=== PATIENT | female | born 1995 | race Hispanic/Latino ===

== ENCOUNTER 2017-10-25 16:35 | Emergency (ER) | payer OTHER ==
[~2017-10-25 16:35] MED LIST: Iopamidol 370 76% 100 ML VIAL ONE
[2017-10-25] MEDS ORDERED: Ondansetron HCl/PF 4 MG/2 ML Vial ONE (17:43)
[2017-10-25 18:09] LABS: ALT (SGPT) 19 U/L (8-55); AST (SGOT) 15 U/L (5-34); Albumin 4.6 g/dL (3.5-5.0); Alkaline Phosphatase 118 U/L (40-150); Anion Gap 17 mmol/L (10-20); BUN (Urea Nitrogen) 11 mg/dL (7.0-18.7); Bilirubin, Total 2.8 mg/dL (0.2-1.2); Calc. Creatinine Clearance 0 mL/min (70-130); Carbon Dioxide 21 mmol/L (22-29); Chloride 102 mmol/L (98-107); Estimated GFR-MDRD 85; Globulin 3.7 g/dL (2.4-3.5); Glucose 107 mg/dL (70-105); Lipase 6 U/L (8-78); Potassium 3.9 mmol/L (3.5-5.1); Protein, Total 8.3 g/dL (6.0-8.3); Sodium 136 mmol/L (136-145)
[2017-10-25 18:10] LABS: BHCG - Serum Negative (NEGATIVE); Pregs Control Background? CLEAR/WHITE (CLR/WHITE); Pregs Control Bar Appear? YES (CONTROL BAR)
[2017-10-25 18:13] LABS: Band 5 % (5-11); Hemoglobin 14.1 g/dL (12.0-16.0); Lymphocytes 7 % (21-51); MDiff Complete? YES; Mean Corpuscular HGB CONC 34.1 g/dL (32.0-36.0); Mean Corpuscular Hemoglobin 30.4 pg (27.0-31.0); Mean Corpuscular Volume 89.3 fl (81.0-99.0); Mean Platelet Volume 8.5 fL (7.4-10.4); Monocytes 4 % (0-10); Neutrophil 84 % (42-75); PLT Morphology Comment Appears Adequate; Platelet Count 272 thou/uL (130-400); RBC Distribution Width 11.3 % (11.5-14.5); RBC Morphology Normal; Red Blood Cell (RBC) Count 4.63 mill/uL (4.20-5.40); White Blood Cell (WBC) Count 13.7 thou/uL (4.8-10.8)
[2017-10-25] MEDS ORDERED: cefTRIAXone\\ROCEPHIN 1 GM VIAL ONE (18:21)
[2017-10-25] MEDS ORDERED: Acetaminophen 500 MG TAB ONE (18:21)
[2017-10-25 19:19] LABS: Bilirubin Negative (Negative); Blood, Urine Trace (Negative); Clarity Hazy (Clear); Glucose, Urine (Dipstick) Negative (Negative); Leukocyte Small (Negative); Nitrite Negative (Negative); Protein, Urine (Dipstick) 100 mg/dL (Neg-Trace); Specific Gravity, Urine 1.015 (1.005-1.030); pH, Urine 8.5 (5.0-9.0)
[2017-10-25 19:43] LABS: Bacteria/HPF 2+ HPF (None Seen)
--- NOTE | 2017-10-25 20:10 | CT ---
CT ABDOMEN AND PELVIS WITH IV CONTRAST 10/25/17 HISTORY: Lower abdominal pain with radiation to the right flank with associated nausea and vomiting. COMPARISON: None available. FINDINGS: There is dependent bibasilar atelectasis. The osseous structures appear intact. There is heterogeneity involving the inferior pole right kidney with perinephric standing present on the right. There is also mid enhancement and thickening of the urothelium of the right ureter. Findin gs are worrisome for pyelonephritis on the right The left kidney has a normal CT appearance. There is no hydronephrosis seen bilaterally. A 2.9 cm low density structure seen in the right adnexal region which probably represents the patient 's right ovary with associated right ovarian cyst. The liver, spleen, pancreas, bilateral adrenal glands, and abdominal aorta demonstrate a normal CT ap pearance. The urinary bladder is incompletely distended. Zuluaga of the urinary bladder do appear mildly thickene d, but this is probably related to incomplete distention although cystitis could also result in urina ry bladder wall thickening. Fluid is seen in the endometrial canal probably related to stage of the patient's menstrual cycle. Le ft adnexal structures have a normal CT appearance. There is no free fluid, fluid collection, or lymphadenopathy seen in the abdomen or pelvis. The appendix is visualized and filled with gas and normal in caliber. IMPRESSION: 1. Right sided pyelonephritis. Correlation with urinalysis is recommended. Follow up exam also s uggested. 2. No CT evidence of appendicitis. 3. Above findings discussed with Dr. Jose on 10/25/17 at 1844 hours. POS: [facility]
== END 2017-10-25 19:43 | disposition home or self-care (01) ==
LOC: SCSER 16:35
DX: N12 Tubulo-interstitial nephritis, not specified as acute or chronic (principal)
CPT/HCPCS: 74177; 80053; 81003; 81015; 83605; 83690; 84703; 85025; 87040; 87077; 87086; 87149; 87186; 96361; 96374; 96375; J0696; J2405

== ENCOUNTER 2017-10-26 17:44 | Inpatient (IN) | payer OTHER, SELFPAY ==
[2017-10-26] MEDS ORDERED: Acetaminophen 500 MG TAB ONE (18:00)
[2017-10-26 18:19] LABS: Hemoglobin 13.4 g/dL (12.0-16.0); Mean Corpuscular HGB CONC 34.7 g/dL (32.0-36.0); Mean Corpuscular Hemoglobin 31.2 pg (27.0-31.0); Mean Corpuscular Volume 89.9 fl (81.0-99.0); Mean Platelet Volume 7.3 fL (7.4-10.4); Platelet Count 235 thou/uL (130-400); RBC Distribution Width 11.2 % (11.5-14.5); Red Blood Cell (RBC) Count 4.28 mill/uL (4.20-5.40); White Blood Cell (WBC) Count 13.6 thou/uL (4.8-10.8)
[2017-10-26 18:36] LABS: Band 20 % (5-11); Lymphocytes 20 % (21-51); MDiff Complete? YES; Monocytes 5 % (0-10); Neutrophil 54 % (42-75); PLT Morphology Comment Appears Adequate; RBC Morphology Normal; Reactive Lymphocytes 1 % (0-10)
[2017-10-26 18:46] LABS: ALT (SGPT) 15 U/L (8-55); AST (SGOT) 12 U/L (5-34); Albumin 4.3 g/dL (3.5-5.0); Alkaline Phosphatase 116 U/L (40-150); Anion Gap 16 mmol/L (10-20); BUN (Urea Nitrogen) 13 mg/dL (7.0-18.7); Bilirubin, Total 1.8 mg/dL (0.2-1.2); Calc. Creatinine Clearance 0 mL/min (70-130); Calcium 9.7 mg/dL (7.8-10.44); Carbon Dioxide 21 mmol/L (22-29); Chloride 101 mmol/L (98-107); Estimated GFR-MDRD 83; Globulin 3.8 g/dL (2.4-3.5); Glucose 97 mg/dL (70-105); Potassium 3.9 mmol/L (3.5-5.1); Protein, Total 8.1 g/dL (6.0-8.3); Sodium 134 mmol/L (136-145)
[2017-10-26 18:55] LABS: BHCG - Serum Negative (NEGATIVE); Pregs Control Background? CLEAR/WHITE (CLR/WHITE); Pregs Control Bar Appear? YES (CONTROL BAR)
[2017-10-26] MEDS ORDERED: Morphine 4 MG/ML VIAL ONE (18:59)
[2017-10-26] MEDS ORDERED: Ondansetron HCl/PF 4 MG/2 ML Vial ONE (19:00)
[2017-10-26 19:23] LABS: Bilirubin Small (Negative); Blood, Urine Negative (Negative); Clarity CLOUDY (Clear); Glucose, Urine (Dipstick) Negative (Negative); Leukocyte Small (Negative); Nitrite Negative (Negative); Protein, Urine (Dipstick) 30 mg/dL (Neg-Trace); Specific Gravity, Urine 1.024 (1.002-1.036); pH, Urine 6.5 (5.0-9.0)
[2017-10-26 19:25] LABS: Bacteria/HPF None Seen HPF (None Seen); Hyaline Casts/LPF 7-10 HYALINE CAST LPF (0-3 Hyaline); Pathc Cast-AUWi Flag 0.58 (0-2.49); WBC/HPF 21-50 HPF (0-3)
[2017-10-26 19:34] LABS: RBC/HPF 0-3 HPF (0-3)
[2017-10-26] MEDS ORDERED: Ondansetron ODT 4 MG TAB SL PRN (20:39)
[2017-10-26] MEDS ORDERED: Acetaminophen 325 MG TAB PO PRN (20:39)
[2017-10-26] MEDS ORDERED: HYDROcodone/Acetaminophen 5/325 mg Tablet PO PRN (20:39)
[2017-10-26] MEDS ORDERED: Ondansetron HCl/PF 4 MG/2 ML Vial IVP PRN (20:39)
[2017-10-26] MEDS: HYDROcodone/Acetaminophen 5/325 mg Tablet PO PRN (21:53)
[2017-10-26 21:57] VITALS: BMI 37.0
[2017-10-27] MEDS: Sodium Chloride 0.9% 1,000 ML IV SCH ×3 (01:46→21:29)
[2017-10-27] MEDS ORDERED: Bisacodyl 10 MG SUPP PR PRN (02:27)
--- NOTE | 2017-10-27 04:50 | HP ---
PRIMARY CARE PHYSICIAN: No PCP. CHIEF COMPLAINT: Right flank pain, fevers, and chills. HISTORY OF PRESENT ILLNESS: Patient is a very pleasant 22-year-old female who presented to the ER on the with complaints of lower abdominal pain and right flank pain, nausea and vomiting. The pat ietierney stated that she received Cipro and was just sent to home. The patient took one dose of Cipro; h owever, continued to have significant nausea, vomiting, and lower abdominal pain, which made her come back to the ER. Patient states that she did have some low grade fever at home, lower abdominal pain , dysuria, nausea, and vomiting. The patient stated that her pain is very sharp in nature and also s he has got some right-sided flank pain. PAST MEDICAL HISTORY: Denies any significant past medical history. PAST SURGICAL HISTORY: She stated that she had a Staph infection of her left extremity and required surgical intervention. PSYCHIATRIC HISTORY: No history of psych. SOCIAL HISTORY: She drinks socially. Denies any drug use or denies any smoking. ALLERGIES: No known drug allergies. MEDICATIONS: She takes none. PHYSICAL EXAMINATION: VITAL SIGNS: In the ED were as the following: Blood pressure 107/61, heart rate of 89, 18, 99%, 99. 5 and 100% on room air. GENERAL: She is awake, alert, oriented x3, does not appear in any distress. CARDIOVASCULAR: S1, S2 present. No murmurs, rubs, or gallops. LUNGS: Clear to auscultation. No rhonchi, wheezes noted. ABDOMEN: Soft, mild tenderness upon palpation to right and left lower quadrant. The patient also ann s CVA tenderness of the right side. EXTREMITIES: No edema. Pedal pulses present x2. REVIEW OF SYSTEMS: Except for the ones mentioned in the H and P. The following complete review of s ystems was negative, unless otherwise mentioned in the HPI or below: Constitutional: Weight loss or gain, ability to conduct usual activities. Skin: Rash, itching. Eyes: Double vision, pain. ENT/Mouth: Nose bleeding, neck stiffness, pain, tenderness. Cardiovascular: Palpitations, dyspnea on exertion, orthopnea. Respiratory: Shortness of breath, wheezing, cough, hemoptysis, fever or night sweats. Gastrointestinal: Poor appetite, abdominal pain, heartburn, nausea, vomiting, constipation, or diarr hea. Genitourinary: Urgency, frequency, dysuria, nocturia. Musculoskeletal: Pain, swelling. Neurologic/Psychiatric: Anxiety, depression. Allergy/Immunologic: Skin rash, bleeding tendency. LABORATORY DATA: Are as the following: White count of 13.6, hemoglobin of 13.4, 38.5 hematocrit, pl atelets of 235, bands of 20. Chemistry: Sodium of 134, potassium of 3.9, bicarbonate of 21, creatin ine of 0.86. She is negative for . She also had an abdomen and pelvis CAT scan, which juan cated inferior pole of the right kidney with perinephric stranding on the right. No hydronephrosis n oted. A 2.9 cm low density structure seen in the right adnexal area, most likely associated with rig ht ovarian cyst. The urinary bladder is incompletely distended. Zuluaga of the urinary bladder do nick ear mildly thickened, but this is probably related to incomplete distention, although cystitis could also result in urinary bladder wall thickening. ASSESSMENT AND PLAN: The patient is a very pleasant 22-year-old female who was admitted to the [facility] for possible pyelonephritis. Patient failed outpatient while technically should not even try out patient therapy. 1. Pyelonephritis. The patient will be started on ceftriaxone q.24 h., start IV hydration. Also, u rine sample has been collected. We will watch for cultures. 2. Nausea, vomiting. We will give patient some Zofran for p.r.n. nausea, vomiting. 3. Elevated leukocytosis with bands, most likely secondary to pyelonephritis. We will continue IV a ntibiotics and continue to monitor the patient.
[2017-10-27] MEDS: HYDROcodone/Acetaminophen 5/325 mg Tablet PO PRN (05:46)
[2017-10-27 06:20] LABS: ALT (SGPT) 13 U/L (8-55); AST (SGOT) 11 U/L (5-34); Albumin 3.6 g/dL (3.5-5.0); Alkaline Phosphatase 94 U/L (40-150); Anion Gap 11 mmol/L (10-20); BUN (Urea Nitrogen) 10 mg/dL (7.0-18.7); Bilirubin, Total 1.1 mg/dL (0.2-1.2); Calc. Creatinine Clearance 204 mL/min (70-130); Calcium 8.4 mg/dL (7.8-10.44); Carbon Dioxide 21 mmol/L (22-29); Chloride 107 mmol/L (98-107); Estimated GFR-MDRD Greater than 90; Globulin 3.1 g/dL (2.4-3.5); Glucose 86 mg/dL (70-105); Protein, Total 6.7 g/dL (6.0-8.3); Sodium 135 mmol/L (136-145)
[2017-10-27 06:21] LABS: Band 8 % (5-11); Hemoglobin 12.2 g/dL (12.0-16.0); Lymphocytes 9 % (21-51); MDiff Complete? YES; Mean Corpuscular HGB CONC 34.3 g/dL (32.0-36.0); Mean Corpuscular Hemoglobin 31.4 pg (27.0-31.0); Mean Corpuscular Volume 91.5 fl (81.0-99.0); Mean Platelet Volume 7.5 fL (7.4-10.4); Monocytes 13 % (0-10); Neutrophil 70 % (42-75); PLT Morphology Comment Appears Adequate; Platelet Count 200 thou/uL (130-400); RBC Distribution Width 11.2 % (11.5-14.5); RBC Morphology Normal; White Blood Cell (WBC) Count 9.9 thou/uL (4.8-10.8)
[2017-10-27] MEDS: Heparin 5,000 UNITS/ML VIAL SC SCH ×3 (08:55→21:30)
--- NOTE | 2017-10-27 09:38 | PDOC.PN ---
- Subjective Encounter Start Date: 10/27/17 Encounter Start Time: 09:36 Ms. Herrera was seen today in follow-up. She notes some continued right flank pain , and some abdominal pain. - Objective Resuscitation Status: Resuscitation Status FULL:Full Resuscitation MAR Reviewed: Yes Vital Signs & Weight: Vital Signs (12 hours) Temp Pulse Resp BP Pulse Ox 10/27/17 08:52 99.2 F 88 17 120/71 98 10/27/17 04:38 100.6 F H 87 20 116/74 99 10/27/17 00:20 97 10/27/17 00:00 98.5 F 87 20 95/53 L 97 Weight Weight 216 lb 1.6 oz I&O: 10/26/17 10/27/17 10/28/17 06:59 06:59 06:59 Intake Total 634 Output Total 800 Balance -166 Result Diagrams: 10/27/17 05:42 10/27/17 05:42 Phys Exam - Physical Examination HEENT: PERRLA Respiratory: no wheezing, no rales, no rhonchi, clear to auscultation bilateral + right CVA tenderness Cardiovascular: RRR, no significant murmur, no rub Gastrointestinal: soft, positive bowel sounds + diffuse tenderness no rebound or guarding Musculoskeletal: no edema, pulses present Dx/Plan (1) Pyelonephritis Code(s): N12 - TUBULO-INTERSTITIAL NEPHRITIS, NOT SPCF ACUTE OR CHRONIC Status: Acute - Plan * Pyelonephritis- continue Rocephin and await cultures * If she continues to have fever before culture results are available then will add Levaquin.
[2017-10-27] MEDS ORDERED: Ondansetron ODT 4 MG TAB PO PRN (13:43)
[2017-10-27] MEDS ORDERED: Ondansetron HCl/PF 4 MG/2 ML Vial IVP PRN (13:44)
[2017-10-27] MEDS ORDERED: Acetaminophen 325 MG TAB PO PRN (16:34)
[2017-10-27] MEDS: cefTRIAXone\\ROCEPHIN 1 GM in Syringe 10 ML SLOW IVP SCH (18:37)
[2017-10-28] MEDS: HYDROcodone/Acetaminophen 5/325 mg Tablet PO PRN ×2 (04:19→20:40)
[2017-10-28 05:27] LABS: Anion Gap 12 mmol/L (10-20); BUN (Urea Nitrogen) 8 mg/dL (7.0-18.7); Calc. Creatinine Clearance 223 mL/min (70-130); Calcium 8.7 mg/dL (7.8-10.44); Carbon Dioxide 21 mmol/L (22-29); Chloride 105 mmol/L (98-107); Estimated GFR-MDRD Greater than 90; Glucose 89 mg/dL (70-105); Potassium 3.6 mmol/L (3.5-5.1); Sodium 134 mmol/L (136-145)
[2017-10-28 06:00] LABS: Band 3 % (5-11); Hemoglobin 11.3 g/dL (12.0-16.0); Hypochromia SLIGHT = 6-15 cells (100X) (0-5/hpf); Lymphocytes 41 % (21-51); MDiff Complete? YES; Mean Corpuscular HGB CONC 34.6 g/dL (32.0-36.0); Mean Corpuscular Hemoglobin 31.1 pg (27.0-31.0); Mean Platelet Volume 7.4 fL (7.4-10.4); Monocytes 7 % (0-10); Neutrophil 48 % (42-75); PLT Morphology Comment Appears Adequate; Platelet Count 215 thou/uL (130-400); Reactive Lymphocytes 1 % (0-10); Red Blood Cell (RBC) Count 3.64 mill/uL (4.20-5.40); White Blood Cell (WBC) Count 8.6 thou/uL (4.8-10.8)
[2017-10-28] MEDS: Sodium Chloride 0.9% 1,000 ML IV SCH ×2 (08:16→18:37)
[2017-10-28] MEDS ORDERED: Ibuprofen 200 MG TAB PO PRN (12:49)
[2017-10-28] MEDS ORDERED: Senokot 8.6 MG TAB PO PRN (12:52)
[2017-10-28] MEDS ORDERED: Polyethylene Glycol 3350 17 GM Packet PO PRN (12:52)
--- NOTE | 2017-10-28 13:27 | PQF ---
CLINICAL DOCUMENTATION IMPROVEMENT CLARIFICATION FORM: ICD-10 Updated PLEASE DO AN ADDENDUM TO THE PROGRESS NOTE WITH ANY DOCUMENTATION UPDATES OR ADDITIONS AND CARRY THROUGH TO DC SUMMARY. THANK YOU. DATE: 10/28/17 ATTN: DR. HARMON Please exercise your independent, professional judgment in responding to the clarification form. Clinical indicators are provided on the bottom of this form for your review Please check appropriate box(es): [ ] Sepsis due to: (Pna, UTI, gangrenous gall bladder, etc.) Due to: [ ] Device (please specify) [ ] Implant [ ] Graft [ ] Infusion [ ] SIRS due to non-infectious process (please specify etiology) [ ] with organ dysfunction [ ] without organ dysfunction [ ] Severe sepsis with acute organ dysfunction of: (Examples: respiratory failure, encephalopathy, acute kidney failure, other) [ ] Septic Shock [ ] Localized infection without sepsis [ ] Other diagnosis [ ] Unable to determine In addition, please specify: Present on Admission (POA): [ ] Yes [ ] No [ ] Unable to determine For continuity of documentation, please document condition throughout progress notes and discharge summary. Thank You. CLINICAL INDICATORS - SIGNS / SYMPTOMS / LABS PULSE 111 TEMP 103.1 WBC 13.6 BANDS 20% RISKS: PYELONEPHRITIS TREATMENT: IV ROCEPHIN (ER-PRESENT) IV FLUIDS (ER-PRESENT) URINE AND BLOOD CULTURES CARDIAC MONITORING (This form is maintained as a part of the permanent medical record) 2014 [employer]. All Rights Reserved [email or web address] Office: [phone] [facility]
[2017-10-28] MEDS: cefTRIAXone\\ROCEPHIN 1 GM in Syringe 10 ML SLOW IVP SCH (18:36)
--- NOTE | 2017-10-28 20:27 | PDOC.PN ---
- Subjective Encounter Start Date: 10/28/17 Encounter Start Time: 09:30 Patient seen and examined. No new complaints. No overnight events. Some flank pain - Objective Resuscitation Status: Resuscitation Status FULL:Full Resuscitation MAR Reviewed: Yes Vital Signs & Weight: Vital Signs (12 hours) Temp Pulse Resp BP BP BP BP 10/28/17 16:00 99.1 F 88 20 118/68 10/28/17 11:45 99.4 F 83 16 117/66 10/28/17 09:55 98.4 F 78 20 130/63 10/28/17 08:36 116/71 109/70 110/68 Pulse Ox 10/28/17 16:00 10/28/17 11:45 10/28/17 09:55 98 10/28/17 08:36 Weight Admit Weight 216 lb 1.6 oz Weight 215 lb 9.6 oz I&O: 10/27/17 10/28/17 10/29/17 06:59 06:59 06:59 Intake Total 634 2827 Output Total 800 500 Balance -166 2327 Result Diagrams: 10/28/17 04:41 10/28/17 04:41 Phys Exam - Physical Examination Constitutional: NAD Respiratory: no wheezing, no rhonchi Cardiovascular: RRR, no rub Gastrointestinal: soft, non-tender, positive bowel sounds flank tend Musculoskeletal: no edema Neurological: moves all 4 limbs Dx/Plan - Plan DVT proph w/SCDs IMPRESSION: 1. Sepsis due to E coli UTI with E coli bacteremia/Pyelonephritis 2. Obesity BMI 37 3. Abn LFTS due to sepsis - resolved 4. Hyponatremia PLAN: * Cont Ceftriaxone * Cont to monitor * Transfer to medical * DC planning in 24 hr if afebrile * Ambulate Review of Systems - Review of Systems Respiratory: negative: Cough, Dry, Shortness of Breath, Hemoptysis, SOB with Excertion, Pleuritic Pain, Sputum, Wheezing Cardiovascular: negative: chest pain, palpitations, orthopnea, paroxysmal nocturnal dyspnea, edema, light headedness - Medications/Allergies Allergies/Adverse Reactions: Allergies Allergy/AdvReac Type Severity Reaction Status Date / Time No Known Drug Allergies Allergy Verified 10/26/17 21:49 Medications: Current Medications Acetaminophen (Tylenol) 650 mg PO Q4H PRN PRN Reason: Headache/Fever or Mild Pain Last Admin: 10/27/17 17:16 Dose: 650 mg Hydrocodone Bitart/Acetaminophen ([place] 5/325) 1 tab PO Q4H PRN PRN Reason: Moderate Pain (4-6) Last Admin: 10/28/17 04:19 Dose: 1 tab Bisacodyl (Dulcolax) 10 mg KS Q24H PRN PRN Reason: Constipation Docusate Sodium (Colace) 100 mg PO BID PENDING SALE TO [facility] Sodium Chloride (Normal Saline 0.9%) 1,000 mls @ 100 mls/hr IV .Q10H PENDING SALE TO [facility] Last Admin: 10/28/17 18:37 Dose: 1,000 mls Ceftriaxone Sodium 1 gm/ (Syringe) 10 mls @ 120 mls/hr SLOW IVP Q24HR@1800 PENDING SALE TO [facility] Last Admin: 10/28/17 18:36 Dose: 10 mls Ibuprofen (Motrin) 400 mg PO Q6H PRN PRN Reason: Mild Pain (1-3) Ondansetron HCl (Zofran Odt) 4 mg PO Q6H PRN PRN Reason: Nausea/Vomiting Last Admin: 10/27/17 14:21 Dose: 4 mg Ondansetron HCl (Zofran) 4 mg IVP Q6H PRN PRN Reason: Nausea/Vomiting Polyethylene Glycol (Miralax) 17 gm PO DAILY PRN PRN Reason: Constipation Saccharomyces Boulardii (Florastor) 250 mg PO DAILY TERRENCE Senna (Senokot) 2 tab PO HSPRN PRN PRN Reason: Constipation Sodium Chloride (Flush - Normal Saline) 10 ml IVF Q12HR PENDING SALE TO [facility] Last Admin: 10/28/17 08:18 Dose: Not Given Sodium Chloride (Flush - Normal Saline) 10 ml IVF PRN PRN PRN Reason: Saline Flush
[2017-10-28] MEDS: Docusate 100 MG CAP PO SCH (20:41)
[2017-10-29] MEDS: Sodium Chloride 0.9% 1,000 ML IV SCH (03:21)
[2017-10-29] MEDS ORDERED: Saccharomyces boulardii 250 MG CAP PO SCH (09:00)
[2017-10-29] MEDS ORDERED: cefTRIAXone\\ROCEPHIN 2 GM in Sodium Chloride 0.9% 100 ML IVPB SCH (10:00)
[2017-10-29] MEDS: Docusate 100 MG CAP PO SCH (10:10)
[2017-10-29 12:36] VITALS: BP 111/68; TEMP 98.5
--- NOTE | 2017-10-30 10:13 | DIS ---
DATE OF DISCHARGE: 10/29/2017 DISCHARGE DISPOSITION: Home. FOLLOWUP: Follow up with primary care physician in 1 week. Please note that patient does not have a primary care physician at this time. She plans to see a physician at [facility] probably, Dr Osorio Bledsoe. Contact number for Dr. Bledsoe was provided. The patient was seen on the day of discharge. Denies any new complaints, no chest pain, shortness of breath, palpitations or fever. SIGNIFICANT LABORATORY DATA: 1. WBC on admission 13.6, at discharge 8.6. 2. Blood and urine culture were positive for E. coli sensitive to Bactrim. BRIEF HOSPITAL COURSE: The patient is a 22-year-old female who presented to the hospital with fever, chills, and flank pain. Please note that patient was seen in the emergency room 24 hours prior to a rrival. She was started on Cipro at that time. Please refer to the history and physical for further details. The patient was admitted to the hospital with diagnosis of sepsis secondary to pyelonephritis. She w as started on IV ceftriaxone. Her blood and urine culture both were positive from the ER visit on . Repeat blood cultures on admission, however, were negative. She has been afebrile over e last 24 hours. Orthostatic vitals were negative. She will continue Bactrim for another 10 days. She was counseled on prevention of UTIs. Plan of care was discussed with the patient and the family in detail. They stated understanding. FINAL DIAGNOSES: 1. Sepsis secondary to Escherichia coli urinary tract infection as well as Escherichia coli bacterem ia/pyelonephritis. 2. Obesity with body mass index 37. Lifestyle modification emphasized. 3. Abnormal liver function tests secondary to sepsis. Bilirubin in the ER was 2.8, repeat was 1.1. 4. Nausea and vomiting, resolved. 5. Hyponatremia with sodium of 134, probably iatrogenic. DISCHARGE DISPOSITION: Home. Plan of care was discussed with the patient and the family in detail. They stated understanding.
== END 2017-10-29 14:45 | disposition home or self-care (01) | DRG 872 ==
LOC: ERS 17:44 → 2NO 20:34 → 3SE 10-28 09:47
PROVIDERS: ADMIT Internal Medicine; ATTEND Internal Medicine
DX: A41.51 Sepsis due to Escherichia coli [E. coli] (principal); E87.1 Hypo-osmolality and hyponatremia; N10 Acute pyelonephritis; B96.20 Unspecified Escherichia coli [E. coli] as the cause of diseases classified elsewhere; E66.9 Obesity, unspecified; Z68.37 Body mass index [BMI] 37.0-37.9, adult; R94.5 Abnormal results of liver function studies; Z71.3 Dietary counseling and surveillance
CPT/HCPCS: 36415; 74177; 80048; 80053; 81003; 81015; 83605; 83690; 84703; 85007; 85025; 85027; 87040; 87077; 87086; 87149; 87186; 96361; 96374; 96375; A4216; J0696; J1644; J2270; J2405; J7050; Q0162

== ENCOUNTER 2018-07-10 15:51 | Inpatient (IN) | payer OTHER ==
[2018-07-10] MEDS ORDERED: Promethazine HCl 25 MG/ML VIAL IM PRN ×2 (17:15→23:31)
[2018-07-10] MEDS ORDERED: Zolpidem Tartrate 5 MG TAB PO PRN (17:15)
[2018-07-10] MEDS ORDERED: Butorphanol Tartrate 1 MG/ML VIAL SLOW IVP PRN (17:15)
[2018-07-10] MEDS ORDERED: Acetaminophen 500 MG TAB PO PRN (17:15)
[2018-07-10] MEDS ORDERED: Ondansetron PF 4 MG/2 ML Vial IVP PRN ×2 (17:15→23:31)
[2018-07-10] MEDS ORDERED: NS / Oxytocin 40 units/1000ml 1,000 ML IV PRN (17:15)
[2018-07-10] MEDS ORDERED: Lidocaine 1% (PF) 30 ML VIAL SC PRN (17:15)
[2018-07-10 18:16] VITALS: BMI 42.0
[2018-07-10 18:34] LABS: Hemoglobin 11.5 g/dL (12.0-16.0); Mean Corpuscular Hemoglobin 28.9 pg (27.0-31.0); Mean Corpuscular Volume 82.5 fL (78.0-98.0); Mean Platelet Volume 7.8 fL (7.4-10.4); Platelet Count 303 thou/uL (130-400); RBC Distribution Width 13.2 % (11.5-14.5); Red Blood Cell (RBC) Count 3.97 mill/uL (4.20-5.40); White Blood Cell (WBC) Count 10.2 thou/uL (4.8-10.8)
[2018-07-10 19:26] LABS: HBSAg Index 0.19 S/CO (0-0.99); Hep B Surf Ag Non-Reactive S/CO (NonReactive); Syphilis Antibody Nonreactive (Nonreactive); Syphilis Antibody Index 0.04 S/CO (<1.00 Non-Reactive)
[2018-07-10] MEDS: NS w/ Oxytocin 10 units 500 ML IV SCH (20:45)
[2018-07-10] MEDS: Lactated Ringer's 1,000 ML IV SCH (21:17)
[2018-07-10] MEDS ORDERED: Fentanyl 4 mcg/Bup 0.1% Cadd 100 ML ONE (22:40)
[2018-07-10] MEDS ORDERED: Naloxone HCl 0.4 mg/ml Vial IVP PRN ×2 (23:31)
[2018-07-10] MEDS ORDERED: ePHEDrine/0.9% NaCl/PF SYRINGE 50 mg/10 ml SLOW IVP PRN (23:31)
[2018-07-10] MEDS ORDERED: Eucerin (Mineral Oil/Petrolatum,White) 30 gm Jar TOP PRN (23:31)
[2018-07-10] MEDS ORDERED: Acetaminophen 325 MG TAB PO PRN (23:31)
[2018-07-10] MEDS ORDERED: Lactated Ringer's 500 ML IV PRN (23:31)
[2018-07-10] MEDS ORDERED: diphenhydrAMINE 50 MG/ML VIAL IVP PRN (23:31)
[2018-07-10] MEDS ORDERED: Communication Order-Pharmacy FS SCH (23:45)
[2018-07-11] MEDS ORDERED: Fentanyl 4 mcg/Bup 0.1% Cadd 100 ML ONE ×2 (07:29→14:17)
[2018-07-11] MEDS: Fentanyl 4 mcg/Bupivacaine 0.1% Cassette 100 ML EPIDURAL SCH ×2 (07:36→15:12)
[2018-07-11] MEDS: Lactated Ringer's 1,000 ML IV SCH ×2 (08:07→14:58)
[2018-07-11] MEDS: NS w/ Oxytocin 10 units 500 ML IV SCH (15:22)
[2018-07-11] MEDS ORDERED: Ondansetron PF 4 MG/2 ML Vial IVP PRN (17:39)
[2018-07-11] MEDS ORDERED: Milk Of Magnesia 30 ML UDCUP PO PRN (17:39)
[2018-07-11] MEDS ORDERED: Zolpidem Tartrate 5 MG TAB PO PRN (17:39)
[2018-07-11] MEDS ORDERED: diphenhydrAMINE 25 MG CAP PO PRN (17:39)
[2018-07-11] MEDS ORDERED: Benzocaine/Menthol 20-0.5% 60 ML CAN TOP PRN (17:39)
[2018-07-11] MEDS ORDERED: Lanolin Ointment 7 GM TUBE TOP PRN (17:39)
[2018-07-11] MEDS ORDERED: Bisacodyl 10 MG SUPP PR PRN (17:39)
[2018-07-11] MEDS ORDERED: Acetaminophen/Codeine 30-300mg Tablet PO PRN ×2 (17:39)
[2018-07-11] MEDS ORDERED: Preparation H Ointment 28 GM TUBE PR PRN (17:39)
[2018-07-11] MEDS ORDERED: NS / Oxytocin 40 units/1000ml 1,000 ML IV SCH (17:45)
[2018-07-11] MEDS: Docusate Calcium (SURFAK) 240 MG CAP PO SCH (22:35)
[2018-07-11] MEDS: Ibuprofen 800 MG TAB PO SCH (22:35)
[2018-07-12] MEDS: Ibuprofen 800 MG TAB PO SCH ×3 (06:35→21:13)
[2018-07-12] MEDS ORDERED: Adacel (T-DAP) 0.5 ML SYRINGE IM ONE (09:00)
[2018-07-12] MEDS: Ferrous Sulfate 325 MG TAB PO SCH ×2 (09:15→16:59)
[2018-07-12] MEDS: Prenatal Vitamin 1 TAB PO SCH (10:06)
[2018-07-12] MEDS: Docusate Calcium (SURFAK) 240 MG CAP PO SCH ×2 (10:07→21:13)
[2018-07-13] MEDS: Ibuprofen 800 MG TAB PO SCH ×2 (05:55→13:49)
[2018-07-13] MEDS: Prenatal Vitamin 1 TAB PO SCH (08:55)
[2018-07-13] MEDS: Docusate Calcium (SURFAK) 240 MG CAP PO SCH (08:55)
[2018-07-13] MEDS: Ferrous Sulfate 325 MG TAB PO SCH ×2 (08:55→18:03)
[2018-07-13 10:43] VITALS: BP 121/81; TEMP 97.5
[2018-07-13] MEDS: Lactated Ringer's 1,000 ML IV SCH (10:44)
[2018-07-14] MEDS ORDERED: Bupivacaine/Epinephrine 0.25% 30 ML VIAL ONE (07:22)
== END 2018-07-13 18:50 | disposition home or self-care (01) | DRG 805 ==
LOC: L&D/OP 15:51 → L&D 17:46 → 3SW 07-11 20:56
PROVIDERS: ADMIT Obstetrics & Gynecology; ATTEND Obstetrics & Gynecology
PROC: 10E0XZZ Delivery of Products of Conception, External Approach (ICD-10-PCS; principal; 2018-07-11)
DX: O99.02 Anemia complicating childbirth (principal); O41.1230 Chorioamnionitis, third trimester, not applicable or unspecified; D64.9 Anemia, unspecified; Z3A.38 38 weeks gestation of pregnancy; Z23 Encounter for immunization; Z37.0 Single live birth
CPT/HCPCS: 51702; 85027; 86780; 86850; 86900; 86901; 87340; 88307; 90715; 99285; J2001; J2405